=== PATIENT | female | born 1935 | race Caucasian/White ===

== ENCOUNTER → 2018-05-14 | Outpatient (CLI) | payer OTHER ==
[~2018-05-14] MED LIST: ALBU90OI61 INH; ALLO100 PO; ALLO300; AMLO5 PO; AMLOATOR PO; ASPI325EC PO; ASPI81CH PO; ASPI81EC PO; ATOR10 PO; CLON1 PO; CODACE30 PO; CYPR4 PO; DIAZ5 PO; DICL75ER PO; DILT30 PO; DILT360ER; DIPH50 PO; DOXE10; DOXE10 PO; FLEC50; FLEC50 PO; FURO40 PO; HYDACE5 PO; LEVSOD100 PO; LEVSOD50; LEVSOD50 PO; LIDO5TP TOP; LISHYD2012 PO; LISI20; LISI20 PO; MELO7.5 PO; METO25 PO; METO50 PO; METTREX2.5 PO; MULVITMIND PO; Norco 5-325 Ta1 EACH PO; OXYACE5T PO; Oxycodone-Apap1 EAC3 PO; POTCHL10ER PO; POTCHL20ER PO; PRED5 PO; RXHYDACE PO; SIMV40; SODCHL1 PO; WARF2; WARF2 PO; ZESTORETIC 20-121 EA PO
== END | disposition home or self-care (01) ==
LOC: LAB SHORT 14:49 → PLD 14:49
DX: D04.4 Carcinoma in situ of skin of scalp and neck (principal)
CPT/HCPCS: 88305

== ENCOUNTER 2018-07-10 14:18 | Emergency (ER) | payer OTHER ==
[~2018-07-10] VITALS: Ht 152.4 cm; Wt 54.9 kg
[2018-07-10] MEDS ORDERED: ALEN70 PO (14:42)
[2018-07-10] MEDS ORDERED: CLON1 PO (14:42)
[2018-07-10] MEDS ORDERED: DOXE10 PO (14:43)
[2018-07-10] MEDS ORDERED: FURO40 PO (14:43)
[2018-07-10] MEDS ORDERED: LEVOCETIRIZINE D5 MG PO (14:44)
[2018-07-10] MEDS ORDERED: PEG (14:46)
[2018-07-10] MEDS ORDERED: POTCHL10ER PO (14:47)
== END 2018-07-10 16:39 | disposition home or self-care (01) ==
LOC: ER 14:18
DX: S20.211A Contusion of right front wall of thorax, initial encounter (principal); I48.91 Unspecified atrial fibrillation; I11.0 Hypertensive heart disease with heart failure; I50.9 Heart failure, unspecified; E03.9 Hypothyroidism, unspecified; Z88.8 Allergy status to other drugs, medicaments and biological substances; Z88.2 Allergy status to sulfonamides; Z88.1 Allergy status to other antibiotic agents; Z79.899 Other long term (current) drug therapy; W18.30XA Fall on same level, unspecified, initial encounter; Y92.000 Kitchen of unspecified non-institutional (private) residence as the place of occurrence of the external cause
CPT/HCPCS: 71046; 72170; 99284-25

== ENCOUNTER 2018-11-15 15:39 | Emergency (ER) | payer OTHER ==
[~2018-11-15] VITALS: Ht 152.4 cm; Wt 49.4 kg
[~2018-11-15 15:39] MED LIST changes: +ALEN70 PO; +AMLO10 PO; +CHLORHEXIDINE FL1 ML; +LEVOCETIRIZINE D5 MG PO; +LEVSOD25 PO; +PEG; +QBRELIS1 MG/1 ML
[2018-11-15 16:14] LABS: BASOPHILS ABSOLUTE AUTO 0.03 K/mm3 (0.00-0.23); BASOPHILS PERCENT AUTO 0 % (0-2); EOSINOPHILS ABSOLUTE AUTO 0.45 K/mm3 (0.00-0.68); EOSINOPHILS PERCENT AUTO 6 % (0-6); Hematocrit 35.5 % (33.0-51.0); Hemoglobin 11.6 g/dL (11.5-16.0); IMMATURE GRAN ABSOLUTE AUTO 0.02 K/mm3 (0.00-0.10); IMMATURE GRAN PERCENT AUTO 0 % (0-1); LYMPHOCYTES ABSOLUTE AUTO 2.21 K/mm3 (0.84-5.20); LYMPHOCYTES PERCENT AUTO 28 % (21-46); MONOCYTES ABSOLUTE AUTO 0.65 K/mm3 (0.16-1.47); MONOCYTES PERCENT AUTO 8 % (4-13); Mean Corpuscular HGB 31.2 pg (26.0-34.0); Mean Corpuscular HGB Conc 32.7 g/dL (31.5-36.5); Mean Corpuscular Volume 95 fL (80-100); Mean Platelet Volume 8.4 fL (9.1-12.4); NEUTROPHILS ABSOLUTE AUTO 4.65 K/mm3 (1.96-9.15); NEUTROPHILS PERCENT AUTO 58 % (41-73); Platelet Count 273 K/mm3 (150-400); RDW Coefficient Variation 13.6 % (11.7-14.2); RDW Standard Deviation 47.1 fL (35.1-46.3); Red Blood Cell Count 3.72 M/mm3 (3.80-5.20); White Blood Cell Count 8.01 K/mm3 (4.00-11.30)
[2018-11-15 16:42] LABS: Alanine Aminotransfer (ALT/SGP 25 U/L (12-78); Albumin, Blood 3.7 g/dL (3.4-5.0); Albumin/Globulin Ratio 1.2 (0.8-1.8); Alk Phos 68 U/L (50-136); Anion Gap 8 mmol/L (6-16); Aspartate Aminotrans (AST/SGOT 41 U/L (12-37); Bilirubin, Total 0.7 mg/dL (0.1-1.0); Blood Urea Nitrogen 8 mg/dL (8-24); Bun/Creatinine Ratio 10.9 (12.0-20.0); CO2, Blood 25 mmol/L (21-32); Calcium, Blood 9.7 mg/dL (8.5-10.1); Chloride, Blood 100 mmol/L (98-108); Creatinine, Blood 0.74 mg/dL (0.40-1.00); Globulin, Blood 3.1 g/dL (2.2-4.0); Glomerular Filtration Rate >60 (60-); Glucose, Blood 89 mg/dL (70-99); Potassium, Blood 3.6 mmol/L (3.5-5.5); Sodium, Blood 133 mmol/L (136-145); Total Protein, Blood 6.8 g/dL (6.4-8.2); Troponin I 0.018 ng/mL (0.000-0.040)
[2018-11-15] MEDS ORDERED: Zofran8 MG PO (19:45)
[2018-11-15] MEDS ORDERED: Norco 5-325 Ta1 EACH PO (19:45)
== END 2018-11-15 20:02 | disposition home or self-care (01) ==
LOC: ER 15:39
PROVIDERS: Emergency Medicine
DX: F11.23 Opioid dependence with withdrawal (principal); I10 Essential (primary) hypertension; I48.0 Paroxysmal atrial fibrillation; E03.9 Hypothyroidism, unspecified; M10.9 Gout, unspecified; Z79.899 Other long term (current) drug therapy
CPT/HCPCS: 36415; 80053; 84484; 85025; 93005; 93010; 99285-25

== ENCOUNTER 2018-12-02 17:36 | Emergency (ER) | payer OTHER ==
[~2018-12-02] VITALS: Ht 152.4 cm; Wt 48.1 kg
[~2018-12-02 17:36] MED LIST changes: +Zofran8 MG PO
[2018-12-02 18:12] LABS: BASOPHILS ABSOLUTE AUTO 0.02 K/mm3 (0.00-0.23); BASOPHILS PERCENT AUTO 0 % (0-2); EOSINOPHILS ABSOLUTE AUTO 0.07 K/mm3 (0.00-0.68); EOSINOPHILS PERCENT AUTO 1 % (0-6); Hematocrit 34.6 % (33.0-51.0); Hemoglobin 11.4 g/dL (11.5-16.0); IMMATURE GRAN ABSOLUTE AUTO 0.04 K/mm3 (0.00-0.10); IMMATURE GRAN PERCENT AUTO 0 % (0-1); LYMPHOCYTES PERCENT AUTO 18 % (21-46); MONOCYTES ABSOLUTE AUTO 1.16 K/mm3 (0.16-1.47); MONOCYTES PERCENT AUTO 11 % (4-13); Mean Corpuscular HGB 30.9 pg (26.0-34.0); Mean Corpuscular HGB Conc 32.9 g/dL (31.5-36.5); Mean Corpuscular Volume 94 fL (80-100); Mean Platelet Volume 8.5 fL (9.1-12.4); NEUTROPHILS ABSOLUTE AUTO 7.68 K/mm3 (1.96-9.15); NEUTROPHILS PERCENT AUTO 71 % (41-73); Platelet Count 264 K/mm3 (150-400); RDW Coefficient Variation 13.8 % (11.7-14.2); RDW Standard Deviation 47.1 fL (35.1-46.3); Red Blood Cell Count 3.69 M/mm3 (3.80-5.20); White Blood Cell Count 10.87 K/mm3 (4.00-11.30)
[2018-12-02 18:24] LABS: Alanine Aminotransfer (ALT/SGP 31 U/L (12-78); Albumin, Blood 3.8 g/dL (3.4-5.0); Albumin/Globulin Ratio 1.2 (0.8-1.8); Alk Phos 69 U/L (50-136); Anion Gap 7 mmol/L (6-16); Aspartate Aminotrans (AST/SGOT 29 U/L (12-37); Bilirubin, Total 0.5 mg/dL (0.1-1.0); Blood Urea Nitrogen 11 mg/dL (8-24); Bun/Creatinine Ratio 16.9 (12.0-20.0); CO2, Blood 29 mmol/L (21-32); Calcium, Blood 9.4 mg/dL (8.5-10.1); Chloride, Blood 93 mmol/L (98-108); Creatinine, Blood 0.65 mg/dL (0.40-1.00); Globulin, Blood 3.3 g/dL (2.2-4.0); Glomerular Filtration Rate >60 (60-); Glucose, Blood 102 mg/dL (70-99); Potassium, Blood 3.4 mmol/L (3.5-5.5); Sodium, Blood 129 mmol/L (136-145); Total Protein, Blood 7.1 g/dL (6.4-8.2)
[2018-12-02 18:35] LABS: Source, Urine Clean Catch
[2018-12-02 18:37] LABS: Bilirubin, Urine Neg (Neg); Blood, Urine Neg (Neg); Glucose Qualitative, Urine Neg (Neg); Ketones, Urine Neg (Neg); Leukocyte Esterase, Urine Neg (Neg); Nitrite, Urine Neg (Neg); Protein, Urine Neg (Neg); Specific Gravity, Urine 1.015 (1.003-1.022); Urobilinogen, Urine NORM (Normal)
[2018-12-02 18:46] LABS: Appearance, Urine Clear (Clear); Color, Urine No Color (P-Yellow)
[2018-12-02] MEDS ORDERED: Magnesium Citr296 ML PO (19:34)
[2018-12-02] MEDS ORDERED: Colace100 MG PO (19:34)
[2018-12-03] MEDS ORDERED: OXYC5 PO (16:15)
[2018-12-03] MEDS ORDERED: METTREX2.5 PO (16:16)
[2018-12-03] MEDS ORDERED: POTA10T PO (16:18)
[2018-12-03] MEDS ORDERED: CLON1 PO (16:20)
[2018-12-03] MEDS ORDERED: LEVOCETIRIZINE D5 MG PO (16:21)
[2018-12-03] MEDS ORDERED: Aspirin EC81 MG PO (16:39)
[2018-12-03] MEDS ORDERED: CHOL10002 PO (16:43)
[2018-12-03] MEDS ORDERED: CALCIUM PO (16:43)
[2018-12-03] MEDS ORDERED: PRESERVISION A1 EACH PO (16:44)
[2018-12-03] MEDS ORDERED: MAGCHL64ER PO (16:44)
[2018-12-03] MEDS ORDERED: SODCHL1 PO (16:48)
[2018-12-03] MEDS ORDERED: Colace100 MG PO (16:49)
== END 2018-12-02 21:09 | disposition home or self-care (01) ==
LOC: ER 17:36
PROVIDERS: Emergency Medicine
DX: K59.00 Constipation, unspecified (principal); M54.5 Low back pain; G89.29 Other chronic pain; E87.1 Hypo-osmolality and hyponatremia; E87.6 Hypokalemia; Z88.8 Allergy status to other drugs, medicaments and biological substances; Z88.2 Allergy status to sulfonamides; Z88.1 Allergy status to other antibiotic agents; Z79.899 Other long term (current) drug therapy; I48.91 Unspecified atrial fibrillation; I11.0 Hypertensive heart disease with heart failure; I50.9 Heart failure, unspecified; E03.9 Hypothyroidism, unspecified
CPT/HCPCS: 36415; 74018; 80053; 81003; 85025; 96360; 99284-25; J7030

== ENCOUNTER 2018-12-03 11:34 | Observation (INO) | payer OTHER ==
[~2018-12-03] VITALS: Ht 152.4 cm; Wt 49.9 kg
[~2018-12-03 11:34] MED LIST changes: +Colace100 MG PO; +Magnesium Citr296 ML PO
[2018-12-03 13:06] LABS: Alanine Aminotransfer (ALT/SGP 38 U/L (12-78); Albumin, Blood 3.5 g/dL (3.4-5.0); Alk Phos 85 U/L (50-136); Anion Gap 9 mmol/L (6-16); Aspartate Aminotrans (AST/SGOT 47 U/L (12-37); BASOPHILS ABSOLUTE AUTO 0.03 K/mm3 (0.00-0.23); BASOPHILS PERCENT AUTO 0 % (0-2); Bilirubin, Total 0.9 mg/dL (0.1-1.0); Blood Urea Nitrogen 9 mg/dL (8-24); Bun/Creatinine Ratio 13.9 (12.0-20.0); CO2, Blood 26 mmol/L (21-32); Calcium, Blood 8.8 mg/dL (8.5-10.1); Chloride, Blood 97 mmol/L (98-108); Creatinine, Blood 0.65 mg/dL (0.40-1.00); EOSINOPHILS ABSOLUTE AUTO 0.02 K/mm3 (0.00-0.68); EOSINOPHILS PERCENT AUTO 0 % (0-6); Globulin, Blood 3.5 g/dL (2.2-4.0); Glomerular Filtration Rate >60 (60-); Glucose, Blood 115 mg/dL (70-99); Hematocrit 35.3 % (33.0-51.0); Hemoglobin 11.4 g/dL (11.5-16.0); IMMATURE GRAN ABSOLUTE AUTO 0.05 K/mm3 (0.00-0.10); IMMATURE GRAN PERCENT AUTO 0 % (0-1); LYMPHOCYTES ABSOLUTE AUTO 1.55 K/mm3 (0.84-5.20); LYMPHOCYTES PERCENT AUTO 11 % (21-46); MONOCYTES ABSOLUTE AUTO 1.73 K/mm3 (0.16-1.47); MONOCYTES PERCENT AUTO 12 % (4-13); Mean Corpuscular HGB 30.4 pg (26.0-34.0); Mean Corpuscular HGB Conc 32.3 g/dL (31.5-36.5); Mean Corpuscular Volume 94 fL (80-100); Mean Platelet Volume 8.9 fL (9.1-12.4); NEUTROPHILS PERCENT AUTO 77 % (41-73); Platelet Count 268 K/mm3 (150-400); Potassium, Blood 3.2 mmol/L (3.5-5.5); RDW Coefficient Variation 14.2 % (11.7-14.2); RDW Standard Deviation 48.7 fL (35.1-46.3); Red Blood Cell Count 3.75 M/mm3 (3.80-5.20); Sodium, Blood 132 mmol/L (136-145); White Blood Cell Count 14.48 K/mm3 (4.00-11.30)
[2018-12-03 13:14] LABS: Source, Urine Catheter
[2018-12-03 13:19] LABS: Bilirubin, Urine Neg (Neg); Blood, Urine Neg (Neg); Glucose Qualitative, Urine Neg (Neg); Ketones, Urine Neg (Neg); Leukocyte Esterase, Urine Neg (Neg); Nitrite, Urine Neg (Neg); Protein, Urine Neg (Neg); Specific Gravity, Urine 1.015 (1.003-1.022); Urobilinogen, Urine NORM (Normal)
[2018-12-03 13:33] LABS: Appearance, Urine Clear (Clear); Color, Urine Yellow (P-Yellow)
[2018-12-03] MEDS ORDERED: OXYC5 PO (16:15)
[2018-12-03] MEDS ORDERED: METTREX2.5 PO (16:16)
[2018-12-03] MEDS ORDERED: POTA10T PO (16:18)
[2018-12-03] MEDS ORDERED: CLON1 PO (16:20)
[2018-12-03] MEDS ORDERED: LEVOCETIRIZINE D5 MG PO (16:21)
[2018-12-03] MEDS ORDERED: Aspirin EC81 MG PO (16:39)
[2018-12-03] MEDS ORDERED: CALCIUM PO (16:43)
[2018-12-03] MEDS ORDERED: CHOL10002 PO (16:43)
[2018-12-03] MEDS ORDERED: PRESERVISION A1 EACH PO (16:44)
[2018-12-03] MEDS ORDERED: MAGCHL64ER PO (16:44)
[2018-12-03] MEDS ORDERED: SODCHL1 PO (16:48)
[2018-12-03] MEDS ORDERED: Colace100 MG PO (16:49)
--- NOTE | 2018-12-04 03:23 | NUR ---
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 1 ASSIST TO THE BSC. PT DID HAVE ONE LARGE SOFT BM TONIGHT WITH SOME SOLID PIECES. STOOL SAMPLE SENT TO LAB FOR GI PANEL. PT STATES SHE "STILL FEELS SOME IN THERE RIGHT AT THE END". PT ASKED FOR A GLOVE AND ATTEMPTED TO REMOVE STOOL HERSELF DIGITALLY WITHOUT SUCCESS. OFFERED PT PRUNE JUICE TO HELP HAVE ANOTHER BM, HOWEVER PT HAS BEEN NAUSEAS OFF AND ON SO SHE DECLINED. MEDICATED FOR NAUSEA WITH ZOFRAN. 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 MEDICATED PER EMAR. VSS, WILL CONTINUE TO MONITOR.
[2018-12-04 04:12] LABS: Adenovirus F 40/41 Not Detected (NOT DETECT); Astrovirus Not Detected (NOT DETECT); Campylobacter Sp Not Detected (NOT DETECT); Cryptosporidium Not Detected (NOT DETECT); Cyclospora Cayetanensis Not Detected (NOT DETECT); E. Coli O157 Not Detected (NOT DETECT); Entamoeba Histolytica Not Detected (NOT DETECT); Enteroaggregative E. coli-EAEC Not Detected (NOT DETECT); Enteropathogenic E. coli-EPEC Not Detected (NOT DETECT); Enterotoxigenic E. coli-ETEC Not Detected (NOT DETECT); Giardia Lamblia Not Detected (NOT DETECT); Norovirus GI/GII Not Detected (NOT DETECT); Plesiomonas Shigelloides Not Detected (NOT DETECT); Rotavirus A Not Detected (NOT DETECT); Salmonella Sp Not Detected (NOT DETECT); Sapovirus Not Detected (NOT DETECT); Shiga Toxin-prod E. coli-STEC Not Detected (NOT DETECT); Shigella/Enteroin E. coli-EIEC Not Detected (NOT DETECT); Vibrio Cholerae Not Detected (NOT DETECT); Vibrio Sp Not Detected (NOT DETECT); Yersinia Enterocolitica Not Detected (NOT DETECT)
[2018-12-04 05:36] LABS: BASOPHILS ABSOLUTE AUTO 0.03 K/mm3 (0.00-0.23); BASOPHILS PERCENT AUTO 0 % (0-2); EOSINOPHILS ABSOLUTE AUTO 0.01 K/mm3 (0.00-0.68); EOSINOPHILS PERCENT AUTO 0 % (0-6); Hematocrit 33.1 % (33.0-51.0); Hemoglobin 10.8 g/dL (11.5-16.0); IMMATURE GRAN ABSOLUTE AUTO 0.06 K/mm3 (0.00-0.10); IMMATURE GRAN PERCENT AUTO 1 % (0-1); LYMPHOCYTES ABSOLUTE AUTO 1.79 K/mm3 (0.84-5.20); LYMPHOCYTES PERCENT AUTO 14 % (21-46); MONOCYTES ABSOLUTE AUTO 1.26 K/mm3 (0.16-1.47); MONOCYTES PERCENT AUTO 10 % (4-13); Mean Corpuscular HGB 30.6 pg (26.0-34.0); Mean Corpuscular HGB Conc 32.6 g/dL (31.5-36.5); Mean Corpuscular Volume 94 fL (80-100); Mean Platelet Volume 8.9 fL (9.1-12.4); NEUTROPHILS PERCENT AUTO 76 % (41-73); Platelet Count 246 K/mm3 (150-400); RDW Coefficient Variation 14.3 % (11.7-14.2); RDW Standard Deviation 48.5 fL (35.1-46.3); Red Blood Cell Count 3.53 M/mm3 (3.80-5.20); White Blood Cell Count 12.85 K/mm3 (4.00-11.30)
[2018-12-04 05:52] LABS: Alanine Aminotransfer (ALT/SGP 36 U/L (12-78); Albumin, Blood 2.8 g/dL (3.4-5.0); Albumin/Globulin Ratio 0.8 (0.8-1.8); Alk Phos 97 U/L (50-136); Anion Gap 8 mmol/L (6-16); Aspartate Aminotrans (AST/SGOT 39 U/L (12-37); Bilirubin, Total 1.2 mg/dL (0.1-1.0); Blood Urea Nitrogen 6 mg/dL (8-24); Bun/Creatinine Ratio 10.8 (12.0-20.0); CO2, Blood 23 mmol/L (21-32); Calcium, Blood 8.1 mg/dL (8.5-10.1); Chloride, Blood 102 mmol/L (98-108); Creatinine, Blood 0.56 mg/dL (0.40-1.00); Globulin, Blood 3.4 g/dL (2.2-4.0); Glomerular Filtration Rate >60 (60-); Glucose, Blood 120 mg/dL (70-99); Magnesium, Blood 2.3 mg/dL (1.6-2.4); Potassium, Blood 3.5 mmol/L (3.5-5.5); Sodium, Blood 133 mmol/L (136-145); Total Protein, Blood 6.2 g/dL (6.4-8.2)
--- NOTE | 2018-12-04 08:32 | NUR ---
PATIENT WAS OFFERED A SHOWER AND DECLINED DUE TO NOT FEELING WELL THIS MORNING. RN WAS NOTIFIED
--- NOTE | 2018-12-04 08:33 | NUR ---
PATIENT DECLINED BREAKFAST THIS SHIFT DUE TO NOT FEELING WELL THIS MORNING. SHE STATED SHE WAS NOT FEELING WELL AT ALL. RN WAS NOTIFIED.
--- NOTE | 2018-12-04 18:16 | NUR ---
PATIENT DID NOT WANT TO EAT DINNER THIS SHIFT DUE TO NOT FEELING WELL. RN NOTIFIED.
--- NOTE | 2018-12-04 20:10 | NUR ---
SUMMARY PT IS A/O X4, SHE IS WEAK/FATIGUED. STATE CONTINUING NAUSEA, NO APPETITE, DECLINES TO EAT. PRN ZOFRAN FOLLOWED BY COMPAZINE FOR RELIEF. STATE BACK PAIN CONTINUES, INCREASES W MOVEMENT/WT BRG, HAVE GIVEN OXYCODONE & TYLENOL FOR RELIEF/CONTROL. SHE HAS BEEN ABLE TO GET UP TO BSC W ASSIST HOWEVER @ X'S INCONT, IN PULLUPS. IV NS CONTINUES @ 100 ML/HR. DR AMAYA STOP IV ANTIBX TODAY. THIS AFTERNOON PT REPORTED "PALPITATIONS", HR TACHY 166, SHE STATE NO C/P. DR AMAYA NOTIFIED, ORDER EKG-SVT 178 BPM. METOPROLOL 5MG IV GIVEN, PT PLACED ON TELE. SHE STATE PALPITATIONS DECREASED, TELE MX REPORT HR 90'S W PAC'S. RESTING/SLEEPING @ CHANGE OF SHIFT REPORT TO NOC SILVIA
--- NOTE | 2018-12-05 03:39 | NUR ---
PT WAS TACHYCARDIC AT THE BEGINNING OF THE SHIFT. PO SCHEDULED METOPROLOL WAS GIVEN TO GOOD EFFECT. AT MIDNIGHT, THIS RN GO A CALL FROM TELEMETRY STATING THE PT WAS HAVING RUNS OF SVT IN THE 140S-150S LASTING AROUND 40 SECONDS EVERY COUPLE MINUTES. WHEN PT WASN'T IN SVT, PT'S HR WAS IN THE MID 80S. THE HOSPITALIST WAS NOTIFIED AND ASKED FOR CLARIFICATION REGARDING THE PRN IV METOPROLOL. HOSPITALIST STATED TO GIVE IT IF PT HAD SVT ABOVE 150 LASTING FOR A COUPLE MINUTES IF THE PRN PERAMETERS WEREN'T MET. THIS RN HAS CLOSELY MONITORED PT'S HR AND OF YET, PT'S HR HAS BEEN ACCEPTABLE. WILL CONTINUE TO MONITOR PT'S HR CLOSELY. PT HAS OTHERWISE HAD AN UNEVENTFUL SHIFT. NO COMPLAINTS OF PAIN OR NAUSEA WERE MADE. VSS. WILL CONTINUE TO MONITOR PT.
--- NOTE | 2018-12-05 08:20 | NUR ---
PATIENT DID NOT EAT BREAKFAST THIS SHIFT DUE TO NOT FEELING WELL. SHE ONLY WANTED TO DRINK TEA. ALTERNATIVES WERE OFFERED AND SHE DECLINED. RN NOTIFIED.
[2018-12-05] MEDS ORDERED: MIRALAX17 GM PO (12:04)
[2018-12-05] MEDS ORDERED: FURO20 PO (12:05)
--- NOTE | 2018-12-05 12:21 | NUR ---
PATIENT DID NOT EAT LUNCH THIS SHIFT. SHE DECLINED HER TRAY WHEN IT WAS OFFERED. SHE DID ACCEPT SOME CUSTARD WHEN IT WAS OFFERED. RN NOTIFIED.
--- NOTE | 2018-12-05 13:01 | NUR ---
DISCHARGE NOTE PT DISCHARGED VIA W/C POV WITH FAMILY AND IN NO ACUTE DISTRESS TO HOME. IV DISCONTINUED INTACT. RX FAXED TO [facility] AT PT REQUEST. PT AND FAMILY VERBALIZED UNDERSTANDING OF DISCHARGE INSTRUCTIONS, IMPORTANCE OF FOLLOWING UP WITH PCP WITHIN 2 WKS AND TAKING ALL MEDICATIONS PRESCRIBED. ALL BELONGINGS SENT HOME WITH PATIENT AT TIME OF DISCHARGE.
== END 2018-12-05 12:56 | disposition home or self-care (01) ==
LOC: ER 11:34 → MEDS 11:35
PROVIDERS: Physician Assistant; ADMIT Internal Medicine
DX: A41.9 Sepsis, unspecified organism (principal); K52.9 Noninfective gastroenteritis and colitis, unspecified; R65.10 Systemic inflammatory response syndrome (SIRS) of non-infectious origin without acute organ dysfunction; R13.10 Dysphagia, unspecified; I47.1 Supraventricular tachycardia; E87.6 Hypokalemia; E87.1 Hypo-osmolality and hyponatremia; M54.5 Low back pain; G89.29 Other chronic pain; I48.0 Paroxysmal atrial fibrillation; I11.0 Hypertensive heart disease with heart failure; I50.32 Chronic diastolic (congestive) heart failure; E03.9 Hypothyroidism, unspecified; Z87.891 Personal history of nicotine dependence; Z79.899 Other long term (current) drug therapy; Z79.82 Long term (current) use of aspirin; Z88.8 Allergy status to other drugs, medicaments and biological substances; Z88.2 Allergy status to sulfonamides
CPT/HCPCS: 0097U; 36415; 71046; 74176; 80053; 81003; 83605; 83690; 83735; 84145; 85025; 87040; 92610; 93005; 93010; 94760; 96361; 96365; 96366; 96367; 96372; 96375; 96376; 97110; 97116; 97162; 99285-25; A9270; G0378; J0744; J0780; J1170; J1650; J2405; J3010; J3480; J7030; P9612

== ENCOUNTER 2018-12-23 10:58 | Emergency (ER) | payer OTHER ==
[~2018-12-23] VITALS: Ht 152.4 cm; Wt 47.2 kg
[~2018-12-23 10:58] MED LIST changes: +Aspirin EC81 MG PO; +CALCIUM PO; +CHOL10002 PO; +FURO20 PO; +MAGCHL64ER PO; +MIRALAX17 GM PO; +OXYC5 PO; +POTA10T PO; +PRESERVISION A1 EACH PO
[2018-12-23 11:25] LABS: BASOPHILS ABSOLUTE AUTO 0.03 K/mm3 (0.00-0.23); BASOPHILS PERCENT AUTO 0 % (0-2); EOSINOPHILS ABSOLUTE AUTO 0.02 K/mm3 (0.00-0.68); EOSINOPHILS PERCENT AUTO 0 % (0-6); Hematocrit 32.6 % (33.0-51.0); Hemoglobin 10.6 g/dL (11.5-16.0); IMMATURE GRAN ABSOLUTE AUTO 0.06 K/mm3 (0.00-0.10); IMMATURE GRAN PERCENT AUTO 1 % (0-1); LYMPHOCYTES ABSOLUTE AUTO 1.72 K/mm3 (0.84-5.20); LYMPHOCYTES PERCENT AUTO 13 % (21-46); MONOCYTES ABSOLUTE AUTO 1.96 K/mm3 (0.16-1.47); MONOCYTES PERCENT AUTO 15 % (4-13); Mean Corpuscular HGB 30.4 pg (26.0-34.0); Mean Corpuscular HGB Conc 32.5 g/dL (31.5-36.5); Mean Corpuscular Volume 93 fL (80-100); Mean Platelet Volume 8.9 fL (9.1-12.4); NEUTROPHILS ABSOLUTE AUTO 9.25 K/mm3 (1.96-9.15); NEUTROPHILS PERCENT AUTO 71 % (41-73); Platelet Count 287 K/mm3 (150-400); RDW Coefficient Variation 14.6 % (11.7-14.2); RDW Standard Deviation 49.8 fL (35.1-46.3); Red Blood Cell Count 3.49 M/mm3 (3.80-5.20); White Blood Cell Count 13.04 K/mm3 (4.00-11.30)
[2018-12-23 11:36] LABS: Alanine Aminotransfer (ALT/SGP 31 U/L (12-78); Albumin, Blood 2.8 g/dL (3.4-5.0); Albumin/Globulin Ratio 0.7 (0.8-1.8); Alk Phos 114 U/L (50-136); Anion Gap 6 mmol/L (6-16); Aspartate Aminotrans (AST/SGOT 34 U/L (12-37); Bilirubin, Total 0.8 mg/dL (0.1-1.0); Blood Urea Nitrogen 14 mg/dL (8-24); CO2, Blood 28 mmol/L (21-32); Calcium, Blood 8.8 mg/dL (8.5-10.1); Chloride, Blood 99 mmol/L (98-108); Creatinine, Blood 0.61 mg/dL (0.40-1.00); Globulin, Blood 3.8 g/dL (2.2-4.0); Glomerular Filtration Rate >60 (60-); Glucose, Blood 108 mg/dL (70-99); Potassium, Blood 3.5 mmol/L (3.5-5.5); Sodium, Blood 133 mmol/L (136-145); Total Protein, Blood 6.6 g/dL (6.4-8.2); Uric Acid, Blood 3.9 mg/dL (2.6-6.0)
[2018-12-23] MEDS ORDERED: Zofran4 MG PO (14:23)
== END 2018-12-23 14:59 | disposition home or self-care (01) ==
LOC: ER 10:58
PROVIDERS: Internal Medicine
DX: M19.072 Primary osteoarthritis, left ankle and foot (principal); Z88.8 Allergy status to other drugs, medicaments and biological substances; Z88.2 Allergy status to sulfonamides; Z88.1 Allergy status to other antibiotic agents; Z79.899 Other long term (current) drug therapy; Z79.82 Long term (current) use of aspirin; I11.0 Hypertensive heart disease with heart failure; I50.9 Heart failure, unspecified; I48.91 Unspecified atrial fibrillation; E03.9 Hypothyroidism, unspecified
CPT/HCPCS: 80053; 84550; 85025; 85651; 86140; 96374; 96375; 99283-25; J1885; J2405

== ENCOUNTER → 2020-02-20 | Outpatient (CLI) | payer OTHER ==
[~2020-02-20] MED LIST changes: +Zofran4 MG PO
== END | disposition home or self-care (01) ==
LOC: LAB SHORT 11:01 → PLD 11:01
DX: L57.0 Actinic keratosis (principal)
CPT/HCPCS: 88305

== ENCOUNTER 2020-09-15 06:19 | Day surgery (SDC) | payer OTHER ==
[~2020-09-15] VITALS: Ht 152.4 cm; Wt 51.7 kg
== END 2020-09-15 08:23 | disposition home or self-care (01) ==
LOC: ORSCSDS 06:19
PROVIDERS: Orthopaedic Surgery
PROC: 01N50ZZ Release Median Nerve, Open Approach (ICD-10-PCS; principal; 2020-09-15 07:30)
DX: G56.02 Carpal tunnel syndrome, left upper limb (principal); I10 Essential (primary) hypertension; K21.9 Gastro-esophageal reflux disease without esophagitis; E78.5 Hyperlipidemia, unspecified; F41.9 Anxiety disorder, unspecified; Z79.82 Long term (current) use of aspirin; Z79.899 Other long term (current) drug therapy
CPT/HCPCS: J2704; J3010; J7120

== ENCOUNTER 2021-02-12 00:56 | Emergency (ER) | payer OTHER ==
[~2021-02-12] VITALS: Ht 152.4 cm; Wt 50.8 kg
[2021-02-12 02:42] LABS: Source, Urine Voided
[2021-02-12 02:44] LABS: BASOPHILS ABSOLUTE AUTO 0.05 K/mm3 (0.00-0.23); BASOPHILS PERCENT AUTO 1 % (0-2); EOSINOPHILS ABSOLUTE AUTO 0.27 K/mm3 (0.00-0.68); EOSINOPHILS PERCENT AUTO 4 % (0-6); Hematocrit 36.4 % (33.0-51.0); Hemoglobin 11.5 g/dL (11.5-16.0); IMMATURE GRAN ABSOLUTE AUTO 0.02 K/mm3 (0.00-0.10); IMMATURE GRAN PERCENT AUTO 0 % (0-1); LYMPHOCYTES ABSOLUTE AUTO 1.93 K/mm3 (0.84-5.20); LYMPHOCYTES PERCENT AUTO 27 % (21-46); MONOCYTES ABSOLUTE AUTO 0.62 K/mm3 (0.16-1.47); MONOCYTES PERCENT AUTO 9 % (4-13); Mean Corpuscular HGB Conc 31.6 g/dL (31.5-36.5); Mean Corpuscular Volume 98 fL (80-100); Mean Platelet Volume 8.3 fL (9.1-12.4); NEUTROPHILS ABSOLUTE AUTO 4.38 K/mm3 (1.96-9.15); NEUTROPHILS PERCENT AUTO 60 % (41-73); Platelet Count 253 K/mm3 (150-400); RDW Coefficient Variation 15.3 % (11.7-14.2); RDW Standard Deviation 55.2 fL (35.1-46.3); Red Blood Cell Count 3.71 M/mm3 (3.80-5.20); White Blood Cell Count 7.27 K/mm3 (4.00-11.30)
[2021-02-12 02:46] LABS: Bilirubin, Urine Neg (Neg); Blood, Urine Neg (Neg); Glucose Qualitative, Urine Neg (Neg); Ketones, Urine Neg (Neg); Leukocyte Esterase, Urine 1+ (Neg); Nitrite, Urine Neg (Neg); Protein, Urine Neg (Neg); Urobilinogen, Urine NORM (Normal)
[2021-02-12 02:47] LABS: Appearance, Urine Clear (Clear); Color, Urine Yellow (P-Yellow)
[2021-02-12 02:52] LABS: Amorphous Light (0-Heavy); Bacteria Few /hpf; Calcium Oxalate Crystals Few /hpf; Red Blood Cells, Urine 0-2 /hpf (0-2); Squamous Epithelial Cells Not Seen /hpf (Few)
[2021-02-12 03:01] LABS: Albumin, Blood 3.5 g/dL (3.4-5.0); Bilirubin, Total 0.5 mg/dL (0.1-1.0); Bun/Creatinine Ratio 16.8 (12.0-20.0); Calcium, Blood 10.1 mg/dL (8.5-10.1); Creatinine, Blood 1.25 mg/dL (0.40-1.00); Globulin, Blood 3.6 g/dL (2.2-4.0); Potassium, Blood 4.9 mmol/L (3.5-5.5); Total Protein, Blood 7.1 g/dL (6.4-8.2)
== END 2021-02-12 06:26 | disposition home or self-care (01) ==
LOC: ER 00:56
PROVIDERS: Emergency Medicine
DX: I11.0 Hypertensive heart disease with heart failure (principal); I50.9 Heart failure, unspecified; I48.91 Unspecified atrial fibrillation; E03.9 Hypothyroidism, unspecified; Z79.899 Other long term (current) drug therapy; Z79.82 Long term (current) use of aspirin
CPT/HCPCS: 70450; 80053; 81001; 85025; 93005; 93010; 99285-25

== ENCOUNTER 2021-02-13 12:45 | Emergency (ER) | payer OTHER ==
[~2021-02-13] VITALS: Ht 152.4 cm; Wt 50.8 kg
== END 2021-02-13 15:15 | disposition home or self-care (01) ==
LOC: ER 12:45
DX: R53.1 Weakness (principal); I11.0 Hypertensive heart disease with heart failure; I50.9 Heart failure, unspecified; I48.91 Unspecified atrial fibrillation; E03.9 Hypothyroidism, unspecified; M10.9 Gout, unspecified; Z79.82 Long term (current) use of aspirin; Z79.899 Other long term (current) drug therapy
CPT/HCPCS: 99284

== ENCOUNTER 2022-10-10 20:25 | Emergency (ER) | payer OTHER ==
[~2022-10-10] VITALS: Ht 160 cm; Wt 49.9 kg
[~2022-10-10 20:25] MED LIST changes: -CHOL10002 PO; +FAMO10 PO; +FOLI1 PO; +Mobic15 MG PO; +ONDA4ODT MM; +OXYCODONE-ACET1 EAC3; +PRESERVISION A1 EAC1 PO; -PRESERVISION A1 EACH PO; +Percocet 5-3251 EACH PO; +VITAMIN D31000 UNI1 PO
[2022-10-10 22:17] VITALS: BP 146/82
== END 2022-10-10 22:40 | disposition home or self-care (01) ==
LOC: ER 20:25
DX: F10.129 Alcohol abuse with intoxication, unspecified (principal); F32.A Depression, unspecified; I11.0 Hypertensive heart disease with heart failure; I50.9 Heart failure, unspecified; E03.9 Hypothyroidism, unspecified; I48.91 Unspecified atrial fibrillation; Z88.1 Allergy status to other antibiotic agents; Z88.2 Allergy status to sulfonamides; Z88.8 Allergy status to other drugs, medicaments and biological substances; Z91.048 Other nonmedicinal substance allergy status; Z79.899 Other long term (current) drug therapy; Z79.82 Long term (current) use of aspirin
CPT/HCPCS: 99282

== ENCOUNTER → 2022-10-20 | Outpatient (CLI) | payer OTHER ==
[~2022-10-20] MED LIST changes: +CIPR500 PO; +DOCU100 PO; +METR500 PO
[2022-10-20 13:28] LABS: Hemoglobin 12.5 g/dL (11.5-16.0)
== END | disposition home or self-care (01) ==
LOC: LAB 11:23 → LAB SHORT 11:23
PROVIDERS: Family Medicine
DX: D64.9 Anemia, unspecified (principal)
CPT/HCPCS: 85014; 85018